=== PATIENT | female | born 1945 | race Caucasian/White ===

== ENCOUNTER 2022-12-01 16:02 | Emergency (ER) | payer OTHER, SELFPAY ==
--- NOTE | ~2022-12-01 | XR_ITS ---
EXAMINATION: XR pelvis 1-2V DATE: 12/01/2022 17:50 INDICATION: Fall. TECHNIQUE: An anteroposterior view of the pelvis was obtained. COMPARISON: None. FINDINGS: There is lumbar dextroscoliosis and moderate spondylosis. No fracture. There is mild osteoa rthritis of the hips. IMPRESSION: 1. Mild osteoarthritis of the hips. Reviewed, dictated and finalized at location E.
--- NOTE | ~2022-12-01 | CT_ITS ---
EXAMINATION: CT cervical spine wo con DATE: 12/01/2022 17:36 INDICATION: Head injury. Neck pain. TECHNIQUE: Computed tomography (CT) of the cervical spine was performed without intravenous contrast. Automated exposure control and iterative reconstruction technique were employed. The dose-length pro duct was 458.60 mGy-cm. COMPARISON: None FINDINGS: There is 7 degrees dextrocurvature of cervical spine. There is kyphosis of cervical spine. There is 2 mm anterolisthesis of C4 on C5. Vertebral body heights are normal. There is severely decre ased disc height at C5-C6 and C6-C7 and mildly decreased disc height at C7-T1. The following disc lev els are specifically discussed: C2-C3: There is no uncovertebral joint osteoarthritis. There is mild right and severe left facet join t osteoarthritis. There is no neural foraminal stenosis. There is no central canal stenosis. C3-C4: There is severe left uncovertebral joint osteoarthritis. There is severe bilateral facet joint osteoarthritis. There is mild left neural foraminal stenosis. There is no central canal stenosis. C4-C5: There is no uncovertebral joint osteoarthritis. There is severe bilateral facet joint osteoart hritis. There is mild bilateral neural foraminal stenosis. There is no central canal stenosis. C5-C6: There is severe bilateral uncovertebral joint osteoarthritis. There is mild right and severe l eft facet joint osteoarthritis. There is mild bilateral neural foraminal stenosis. There is mild cent ral canal stenosis. C6-C7: There is severe bilateral uncovertebral joint osteoarthritis. There is mild right and severe l eft facet joint osteoarthritis. There is mild bilateral neural foraminal stenosis. There is mild cent ral canal stenosis. C7-T1: There is no uncovertebral joint osteoarthritis. There is severe bilateral facet joint osteoart hritis. There is mild bilateral neural foraminal stenosis. There is no central canal stenosis. IMPRESSION: 1. No fracture. 2. Severe cervical spondylosis. Reviewed, dictated and finalized at location E.
--- NOTE | ~2022-12-01 | XR_ITS ---
EXAMINATION: XR chest 2V DATE: 12/01/2022 17:50 INDICATION: Fall. TECHNIQUE: Frontal and lateral views of the chest were obtained. COMPARISON: None. FINDINGS: There is mild atelectasis in the lower lung zones. No pleural effusion or pneumothorax. The heart size is normal. Calcified right hilar and mediastinal lymph nodes are consistent with old gran ulomatous disease. IMPRESSION: 1. Mild atelectasis in the lower lung zones. Reviewed, dictated and finalized at location E.
--- NOTE | ~2022-12-01 | CT_ITS ---
EXAMINATION: CT brain wo con DATE: 12/01/2022 17:35 INDICATION: Head injury. TECHNIQUE: Computed tomography (CT) of the head was performed without intravenous contrast. The mA wa s adjusted according to patient size. Iterative reconstruction technique was employed. The dose-lengt h product was 605.33 mGy-cm. COMPARISON: None FINDINGS: There are scattered areas of low attenuation in the cerebral white matter. There is no intr acranial hemorrhage, acute infarction, or abnormal intracranial mass lesion. The ventricles are rob l in size. The orbits are normal. There is mild mucosal thickening in the paranasal sinuses. The mast oid air cells are normal. There is a left posterior scalp hematoma. IMPRESSION: 1. Moderate nonspecific cerebral white matter disease, which likely represents chronic small vessel i schemic disease. Reviewed, dictated and finalized at location E. IMPRESSION: 1. Moderate nonspecific cerebral white matter disease, which likely represents chronic small vessel ischemic disease.
[2022-12-01 16:03] VITALS: BP 145/74; PULSE 62; RESP 18; TEMP 36.6; O2SAT 96
--- NOTE | 2022-12-01 18:05 | ED.HEATRA ---
HPI - Head Injury General Chief complaint: Head Injury Stated complaint: fall- head injury Time Seen by Provider: 12/01/22 17:19 Source: patient Mode of arrival: wheelchair Limitations: no limitations History of Present Illness HPI Narrative: This is a 77 year old female that presents to the ER for head injury sustained this afternoon. Reports she was in her basement on a ladder. She missed the last step of the ladder and fell onto her left side. Reports hitting her head on the concrete floor. She did not lose consciousness. Reports a headache and neck pain. Denies vision changes, vomiting, or numbness. Related Data Allergies Allergy/AdvReac Type Severity Reaction Status Date / Time No Known Allergies Allergy Verified 12/01/22 18:32 Review of Systems Review of Systems: CONSTITUTIONAL: Denies fever EYES: Denies visual changes GASTROINTESTINAL: Denies vomiting MUSCULOSKELETAL: Reports joint pain, and myalgia. NEUROLOGIC: Reports headache. Denies numbness, or weakness. All systems reviewed & are unremarkable except as noted in HPI and below PMFSH Past Medical History Medical History (Updated 12/01/22 @ 18:24 by Anay Gary PA-C) History of asthma History of hypertension Social History Social History (Updated 12/01/22 @ 18:07 by Anay Gary PA-C) Smoking status: Never smoker Exam Narrative: GENERAL: Well-appearing, well-nourished, and in no acute distress. HEAD: Normocephalic, atraumatic. EYES: PERRLA and EOMI. ENT: Nares clear, no rhinorrhea or epistaxis. Mucous membranes moist. Oropharynx without tonsillar hypertrophy exudate or other lesions. Bilateral TMs pearly rooney non-bulging NECK: Supple. No adenopathy or masses. C collar in place CHEST: Clear to auscultation. No respiratory distress. No wheezes rales or rhonchi HEART: Regular rate and rhythm. No murmur heard. Normal peripheral pulses. ABDOMEN: Soft, nontender, nondistended, normal active bowel sounds. EXTREMITIES: Normal range of motion. No edema. Strength equal in bilateral upper and lower extremities (5/5) SKIN: Warm, dry, no rash. NEURO: No focal deficits. Alert and oriented x3. Cranial nerves II through XII grossly intact PSYCH: Normal mood and affect Course Course Emergency Course: Patient agrees with plan of care. Updated on work-up Vital Signs Vital signs: Vital Signs Temperature 97.9 F 12/01/22 16:03 Pulse Rate 62 12/01/22 16:03 Respiratory Rate 18 12/01/22 16:03 Blood Pressure 145/74 H 12/01/22 16:03 Pulse Oximetry 96 12/01/22 16:03 Oxygen Delivery Room Air 12/01/22 16:03 Temperature 97.9 F 12/01/22 16:03 Pulse Rate 62 12/01/22 16:03 Respiratory Rate 18 12/01/22 16:03 Blood Pressure 145/74 H 12/01/22 16:03 Pulse Oximetry 96 12/01/22 16:03 Oxygen Delivery Room Air 12/01/22 16:03 MDM - Head Injury MDM Narrative Medical decision making narrative: Patient presents to the emergency department after a fall off of a ladder with headache and neck pain. Patient is neurologically intact. CT scans of the brain and cervical spine without acute findings. Chest x-ray and pelvic x-ray also without acute abnormalities. Patient instructed on care of concussion. She is to follow-up with primary provider. She was given warnings to return to the ER Differential Diagnosis Differential diagnosis: Likely concussion without loss of consciousness, closed head injury, subdural hematoma and other (Cervical fracture) Imaging Data Radiologist's impression: ITS Impressions Head CT 12/01/22 17:40 IMPRESSION: 1. Moderate nonspecific cerebral white matter disease, which likely represents chronic small vessel ischemic disease. Cervical Spine CT 12/01/22 17:43 IMPRESSION: 1. No fracture. 2. Severe cervical spondylosis. Chest X-Ray 12/01/22 17:51 IMPRESSION: 1. Mild atelectasis in the lower lung zones. Pelvis X-Ray 12/01/22 17:55 IMPRESSION: 1. Mild osteoarthrit
[2022-12-01] MEDS: ACETAMINOPHEN 500 MG TABLET 1000 MG PO (18:33)
[2022-12-01] MEDS: ONDANSETRON HCL ODT 4 MG TABLET PO (18:34)
== END 2022-12-01 19:10 | disposition home or self-care (01) ==
PROVIDERS: Emergency Provider Physician Assistant; PCP Internal Medicine
DX: S09.90XA Unspecified injury of head, initial encounter (principal); S19.9XXA Unspecified injury of neck, initial encounter; J45.909 Unspecified asthma, uncomplicated; I10 Essential (primary) hypertension; M47.812 Spondylosis without myelopathy or radiculopathy, cervical region; M16.0 Bilateral primary osteoarthritis of hip; W11.XXXA Fall on and from ladder, initial encounter
CPT/HCPCS: 70450; 71046; 72125; 72170; 99284; A9270